=== PATIENT | male | born 1945 | race Hispanic/Latino ===

== ENCOUNTER 2021-01-08 13:29 | Emergency (ER) | payer OTHER ==
[~2021-01-08] VITALS: Ht 175.3 cm; Wt 74.8 kg
[~2021-01-08 13:29] MED LIST: ACET1TAB25 PO; ASPI-1005 PO; ATOR20TA65 PO; CLOP75TA32 PO; ERGO500014 PO; FAMO20TA8 PO; LISI-809 PO; METO25 PO; PHEN-947 PO; TAMS0.4C32 PO
[2021-01-08 13:44] VITALS: BP 128/66
[2021-01-08] MEDS ORDERED: TRAM50TA4 PO (15:01)
== END 2021-01-08 16:03 | disposition home or self-care (01) ==
LOC: EDH 13:29
DX: S82.51XA Displaced fracture of medial malleolus of right tibia, initial encounter for closed fracture (principal); R47.01 Aphasia; I10 Essential (primary) hypertension; Z79.02 Long term (current) use of antithrombotics/antiplatelets; Z79.82 Long term (current) use of aspirin; Z79.899 Other long term (current) drug therapy; Z98.2 Presence of cerebrospinal fluid drainage device; Z86.73 Personal history of transient ischemic attack (TIA), and cerebral infarction without residual deficits; W18.39XA Other fall on same level, initial encounter; Y93.89 Activity, other specified; Y92.89 Other specified places as the place of occurrence of the external cause; Y99.8 Other external cause status
CPT/HCPCS: 29515; 70450; 73610